=== PATIENT | male | born 1950 | race Caucasian/White ===

== ENCOUNTER 2016-07-25 12:28 | Inpatient (IN) | payer OTHER ==
[~2016-07-25] VITALS: Ht 167.6 cm; Wt 108.5 kg
[~2016-07-25 12:28] MED LIST: /METO25TAB PO; ALEV220C2; CELE-19 PO; COUM1TAB17 PO; HYDR7.5T30 PO; LYRI75CA PO; MELO7.5S PO; METO50TA2 PO; PERCOCET PO; TRAMADOL PO; TYLE167L PO
[2016-07-25 15:03] LABS: INR 1.4
[2016-07-25 15:18] LABS: BASO % 0.2 % (0.0-1.0); EOS % 0.2 % (0.0-3.0); LYMPH # 0.4 K/mm3 (1.5-4.5); LYMPH % 10.1 % (24.0-44.0); MEAN CORPUSCULAR HEMOGLOBIN 29.6 pg (27.0-33.0); MEAN CORPUSCULAR HGB CONC 32.8 g/dl (32.0-36.5); MEAN CORPUSCULAR VOLUME 90.1 fl (80.0-96.0); MONO # 0.2 K/mm3 (0.0-0.8); MONO % 4.4 % (0.0-5.0); NEUTROPHILS # 3.7 K/mm3 (1.8-7.7); NEUTROPHILS % 84.1 % (36.0-66.0); RED CELL DISTRIBUTION WIDTH 13.6 % (11.5-14.5); WHITE BLOOD COUNT 4.4 K/mm3 (4.0-10.0)
[2016-07-25 15:20] LABS: ANION GAP 14 MEQ/L (8-16); BLOOD UREA NITROGEN 15 MG/DL (7-18); CALCIUM LEVEL 8.4 MG/DL (8.8-10.2); CARBON DIOXIDE LEVEL 27 MEQ/L (21-32); CHLORIDE LEVEL 98 MEQ/L (98-107); CREATININE FOR GFR 0.64 MG/DL (0.70-1.30); GLOMERULAR FILTRATION RATE > 60.0 (>49); GLUCOSE, FASTING 169 MG/DL (80-110); POTASSIUM SERUM 3.5 MEQ/L (3.5-5.1); SODIUM LEVEL 139 MEQ/L (136-145)
[2016-07-25 15:32] LABS: PLATELET COUNT, AUTOMATED 59 k/mm3 (150-450)
[2016-07-25] MEDS ORDERED: OXAZEPAM 15 MG CAP As Ordered ONE (16:23)
[2016-07-25] MEDS ORDERED: METO50TA2 PO (17:05)
--- NOTE | 2016-07-25 18:25 | EDDOCDS ---
Physician Documentation [facility] Name: Onel Juarez Age: 65 yrs Sex: Male : 1950 Arrival Date: 07/25/2016 Time: 12:28 Bed 20 Private MD: Disposition: 07/25/16 17:07 Hospitalization ordered by Treva Aaron for Inpatient Admission. Preliminary diagnosis are Epistaxis, Alcohol dependence with withdrawal, Thrombocytopenia, unspecified. - Bed requested for 5 [place]. - Status is Inpatient Admission. mb9 - Condition is Stable. - Problem is new. - Symptoms are unchanged. Historical: - Allergies: No known drug Allergies; - Home Meds: 1. metoprolol tartrate 50 mg Oral tab 1 tab 2 times per day 2. Celebrex 200 mg Oral cap 1 cap 2 times per day - PMHx: Hypertension; - PSHx: right hip replacement.; - Social history: Smoking status: Chewing Tobacco Patient uses alcohol on a daily basis. "about 12 bottles of beer".. No barriers to communication noted, The patient speaks fluent Paraguayan. - Family history: No immediate family members are acutely ill. - : The pt / caregiver states he / she is not on anticoagulants. Home medication list is obtained from. - Exposure Risk Screening:: None identified. Vital Signs: 07/25 12:46 BP 141 / 67; Pulse 108; Resp 20; Pulse Ox 96% on R/A; Weight 112.04 kg / 247.01 lbs dpm (R); Height 5 ft. 6 in. (167.64 cm) (R); Pain 0/10; 12:54 BP 151 / 71 (auto/); mb9 12:55 Pulse 104 MON; Pulse Ox 96% ; mb9 13:25 Pulse 96 MON; Pulse Ox 87% ; mb9 13:25 BP 123 / 81 (auto/); mb9 13:39 Pulse 102 MON; Pulse Ox 96% ; mb9 13:39 BP 123 / 77 (auto/); mb9 13:41 Temp 97.9(O); nb2 17:20 BP 149 / 66; Pulse 122; Resp 17; Temp 97.8(O); Pulse Ox 95% on R/A; mb9 12:46 Body Mass Index 39.87 (112.04 kg, 167.64 cm) dpm Procedures: 18:02 Epistaxis Treatment: Moderate amount of bleeding noted from left nare. Treated using br1 direct pressure, nasal clamp, Bautista-Synephrine drops, anterior packing, with a Rapid Rhino 5.5cm. MDM: 13:39 Oral Temp ordered. br1 14:11 IV Saline Lock ordered. br1 14:11 NS 0.9% 1000 ml IV at 150 mL/hr continuous ordered. br1 14:12 CBC with Diff Ordered. EDMS 14:12 BMP Ordered. EDMS 14:12 PT/INR Ordered. EDMS 14:12 PTT Ordered. EDMS 14:32 [facility] Payment Agreement was scanned into [employer] and attached to record. jls1 14:32 Financial registration complete. jls1 15:49 CBC with Diff Reviewed. br1 15:49 BMP Reviewed. br1 15:49 PT/INR Reviewed. br1 15:49 PTT Reviewed. br1 15:50 Ambulate Patient to Assess Patient Safety ordered. br1 16:20 Oxazepam 30 mg PO once ordered. br1 16:28 BED REQUEST+ADM ordered. EDMS 17:08 Admission / Observation Status ordered. EDMS 17:08 2 GRAM SODIUM DIET ordered. EDMS 17:09 HEMOGLOBIN & HEMATOCRIT Ordered. EDMS 18:03 ED course: Called to bedside, return of left sided epistaxis. 5.5 cm rapid rhino br1 anterior packing placement with good effect. Will continue to monitor.. Administered Medications: 14:43 Drug: NS 0.9% 1000 ml [sodium chloride 0.9 % intravenous solution] Route: IV; Rate: 150 mb9 mL/hr; Site: left antecubital; 18:24 Follow up: IV Intake: 300ml mb9 16:28 Drug: Oxazepam 30 mg [oxazepam 15 mg capsule (2 caps)] Route: PO; ld5 Signatures: Dispatcher [employer] EDMS Thanh Echevarria MD MD br1 Kasia Contreras RN RN sls2 Lalit Alvarenga RN RN mb9 Sheri Stallings jls1 Clarissa Gee RN ld5 The chart was reviewed and I authenticate all verbal orders and agree with the evaluation and treatment provided.Attachments: 14:32 [facility] Payment Agreement jl MTDD
--- NOTE | 2016-07-25 18:25 | EDDOCDS ---
Nurse's Notes [facility] Name: Onel Juarez Age: 65 yrs Sex: Male : 1950 Arrival Date: 07/25/2016 Time: 12:28 Bed 20 Private MD: Diagnosis: Epistaxis;Alcohol dependence with withdrawal;Thrombocytopenia, unspecified Presentation: 07/25 12:37 Presenting complaint: EMS states: "Nose bleed since 3 am on and off. He has a history mb9 of hypertension. Pt has been drinking all day.". Suicide/Homicide risk assessment- the patient denies having any suicidal and/or homicidal ideations and does not present with any other emotional, behavioral or mental health complaints. Status: Patient is not a manager client service or dependent. Transition of care: patient was not received from another setting of care. 12:37 Acuity: LATONYA Level 3 mb9 12:37 Method Of Arrival: Ambulance mb9 12:55 Adult Sepsis Screening: The patient does not have new or worsening altered mentation. mb9 Patient's respiratory rate is less than 22. Systolic blood pressure is greater than 100. Patient has a qSOFA score of 0- Negative Sepsis Screen. Triage Assessment: 12:56 General: Appears unkempt, Behavior is cooperative, Smells of alcohol. Pain: Denies mb9 pain. Pt Declines HIV testing. The patient is triaged at the bedside. See Assessment in Nurses Notes section of ED record. Neurological: Level of Consciousness is awake, alert, Oriented to person, place, Speech is slurred, Facial symmetry appears normal, Pupils are PERRLA. EENT: Nares with bleeding noted pt reports nose bleed since 3 am and drinking all day. pt cleaned of a large of dried blood. . Respiratory: Airway is patent Respiratory effort is even, unlabored. Historical: - Allergies: No known drug Allergies; - Home Meds: 1. metoprolol tartrate 50 mg Oral tab 1 tab 2 times per day 2. Celebrex 200 mg Oral cap 1 cap 2 times per day - PMHx: Hypertension; - PSHx: right hip replacement.; - Social history: Smoking status: Chewing Tobacco Patient uses alcohol on a daily basis. "about 12 bottles of beer".. No barriers to communication noted, The patient speaks fluent Serbian. - Family history: No immediate family members are acutely ill. - : The pt / caregiver states he / she is not on anticoagulants. Home medication list is obtained from. - Exposure Risk Screening:: None identified. Screenin:20 Screening information is obtained from the patient. Fall risk: No risks identified. mb9 Assistance ADL's: requires no assistance with activities of daily living. Abuse/DV Screen: The patient / caregiver reports he/she is: not in a situation that causes fear, pain or injury. Nutritional screening: No deficits noted. Advance Directives: There is no active DNR order. home support is adequate. Assessment: 13:52 General: Appears in no apparent distress, Behavior is appropriate for age, cooperative. mb9 Respiratory: Airway is patent Respiratory effort is even, unlabored. 16:13 Reassessment: Patient states symptoms have improved. Adult Sepsis Screening: The mb9 patient does not have new or worsening altered mentation. Patient's respiratory rate is less than 22. Systolic blood pressure is greater than 100. Patient has a qSOFA score of 0- Negative Sepsis Screen. General: Appears in no apparent distress, Behavior is appropriate for age, cooperative. General: pt able to ambulate 20 ft with his cane. pt appeared unsteady but states, "I feel like I'm walking pretty normal". . EENT: Nares pt appears to have a small amount of bleeding from his left nare.. 17:20 Reassessment: Patient states symptoms have improved. General: Appears in no apparent mb9 distress, Behavior is appropriate for age, cooperative. Respiratory: Airway is patent Respiratory effort is even, unlabored. Vital Signs: 12:46 BP 141 / 67; Pulse 108; Resp 20; Pulse Ox 96% on R/A; Weight 112.04 kg (R); Height 5 dpm ft. 6 in. (167.64 cm) (R); Pain 0/10; 12:54 BP 151 / 71 (auto/); mb9 12:55 Pulse 104 MON; Pulse Ox 96% ; mb9 13:25 Pulse 96 MON; Pulse Ox 87% ; mb9 13:25 BP 123 / 81 (auto/); mb9 13:39 Pulse 102 MON; Pulse Ox 96% ; mb9 13:39 BP 123 / 77 (auto/); mb9 13:41 Temp 97.9(O); nb2 17:20 BP 149 / 66; Pulse 122; Resp 17; Temp 97.8(O); Pulse Ox 95% on R/A; mb9 12:46 Body Mass Index 39.87 (112.04 kg, 167.64 cm) dpm Vitals: 12:56 Log In Time N/A - ambulance arrival. mb9 ED Course: 12:29 Patient visited by Nikky Osorio PCA. ar3 12:29 Patient moved to Waiting ar3 12:29 Patient moved to 20 ar3 12:40 Triage Initiated mb9 13:03 Patient visited by Lalit Alvarenga RN. mb9 13:03 Maintain field IV. Dressing intact. Good blood return noted. Site clean & dry. Gauge & mb9 site: 20 gauge left ac. 13:42 Patient visited by Angelic Orozco. nb2 14:03 Thanh Echevarria MD is Attending Physician. br1 14:10 Patient visited by Thanh Echevarria MD. br1 14:32 [facility] Payment Agreement was scanned into [employer] and attached to record. jls1 14:39 Patient name changed from Onel\\S\\\\S\\Hellinger\\S\\ to Onel\\S\\ \\S\\Hellinger. EDMS 14:43 PTT Sent. mb9 14:43 PT/INR Sent. mb9 14:43 BMP Sent. mb9 14:43 CBC with Diff Sent. mb9 16:12 Patient visited by Lalit Alvarenga RN. mb9 16:58 Patient visited by Thanh Echevarria MD. br1 17:07 Treva Aaron is Hospitalizing Provider. br1 17:20 The patient / caregiver is instructed regarding the plan of care and ED course. mb9 17:20 No procedures done that require assistance. mb9 Administered Medications: 14:43 Drug: NS 0.9% 1000 ml [sodium chloride 0.9 % intravenous solution] Route: IV; Rate: 150 mb9 mL/hr; Site: left antecubital; 18:24 Follow up: IV Intake: 300ml mb9 16:28 Drug: Oxazepam 30 mg [oxazepam 15 mg capsule (2 caps)] Route: PO; ld5 Intake: 17:45 PO: 360.00ml; Total: 360.00ml. mb9 18:24 IV: 300.00ml; Total: 660.00ml. mb9 Output: 17:45 Urine: 300.00ml; Total: 300.00ml. mb9 Order Results: Lab Order: CBC with Diff; SPEC'M 07/25/16 14:35 Test: WHITE BLOOD COUNT; Value: 4.4; Range: 4.0-10.0; Units: K/mm3; Status: F Test: RED BLOOD COUNT; Value: 4.37; Range: 4.30-6.10; Units: M/mm3; Status: F Test: HEMOGLOBIN; Value: 12.9; Range: 14.0-18.0; Abnormal: Below low normal; Units: g/dl; Status: F Test: HEMATOCRIT; Value: 39.4; Range: 42.0-52.0; Abnormal: Below low normal; Units: %; Status: F Test: MEAN CORPUSCULAR VOLUME; Value: 90.1; Range: 80.0-96.0; Units: fl; Status: F Test: MEAN CORPUSCULAR HEMOGLOBIN; Value: 29.6; Range: 27.0-33.0; Units: pg; Status: F Test: MEAN CORPUSCULAR HGB CONC; Value: 32.8; Range: 32.0-36.5; Units: g/dl; Status: F Test: RED CELL DISTRIBUTION WIDTH; Value: 13.6; Range: 11.5-14.5; Units: %; Status: F Test: PLATELET COUNT, AUTOMATED; Value: 59; Range: 150-450; Abnormal: Below low normal; Units: k/mm3; Status: F Test: NEUTROPHILS %; Value: 84.1; Range: 36.0-66.0; Abnormal: Above high normal; Units: %; Status: F Test: LYMPH %; Value: 10.1; Range: 24.0-44.0; Abnormal: Below low normal; Units: %; Status: F Test: MONO %; Value: 4.4; Range: 0.0-5.0; Units: %; Status: F Test: EOS %; Value: 0.2; Range: 0.0-3.0; Units: %; Status: F Test: BASO %; Value: 0.2; Range: 0.0-1.0; Units: %; Status: F Test: LARGE UNSTAINED CELL %; Value: 1.0; Range: 0.0-4.0; Units: %; Status: F Test: NEUTROPHILS #; Value: 3.7; Range: 1.8-7.7; Units: K/mm3; Status: F Test: LYMPH #; Value: 0.4; Range: 1.5-4.5; Abnormal: Below low normal; Units: K/mm3; Status: F Test: MONO #; Value: 0.2; Range: 0.0-0.8; Units: K/mm3; Status: F Test: EOS #; Value: 0.0; Range: 0.0-0.50; Units: K/mm3; Status: F Test: BASO #; Value: 0.0; Range: 0.0-0.2; Units: K/mm3; Status: F Test: LARGE UNSTAINED CELL #; Value: 0.0; Range: 0.0-0.4; Units: K/mm3; Status: F Lab Order: [facility]; SPEC'M 07/25/16 14:35 Test: GLUCOSE, FASTING; Value: 169; Range: 80-110; Abnormal: Above high normal; Units: MG/DL; Status: F Test: BLOOD UREA NITROGEN; Value: 15; Range: 7-18; Units: MG/DL; Status: F Test: CREATININE FOR GFR; Value: 0.64; Range: 0.70-1.30; Abnormal: Below low normal; Units: MG/DL; Status: F Test: GLOMERULAR FILTRATION RATE; Value: > 60.0; Range: >49; Status: F Test: SODIUM LEVEL; Value: 139; Range: 136-145; Units: MEQ/L; Status: F Test: POTASSIUM SERUM; Value: 3.5; Range: 3.5-5.1; Units: MEQ/L; Status: F Test: CHLORIDE LEVEL; Value: 98; Range: 98-107; Units: MEQ/L; Status: F Test: CARBON DIOXIDE LEVEL; Value: 27; Range: 21-32; Units: MEQ/L; Status: F Test: ANION GAP; Value: 14; Range: 8-16; Units: MEQ/L; Status: F Test: CALCIUM LEVEL; Value: 8.4; Range: 8.8-10.2; Abnormal: Below low normal; Units: MG/DL; Status: F Test Note: ; Units are mL/min/1.73 m2 Chronic Kidney Disease Staging per NKF: Stage I & II GFR >=60 Normal to Mildly Decreased Stage III GFR 30-59 Moderately Decreased Stage IV GFR 15-29 Severely Decreased Stage V GFR <15 Very Little GFR Left ESRD GFR <15 on IS PROJECT MANAGER Lab Order: PT/INR; SPEC'M 07/25/16 14:35 Test: PROTHROMBIN TIME; Value: 17.3; Range: 12.3-14.5; Abnormal: Above high normal; Units: SECONDS; Status: F Test: INR; Value: 1.40; Status: F Test Note: ; THERAPUTIC HUMAN INR VALUES INDICATIONS NORMAL RANGES PROPHYLAXIS/TREATMENT OF: VENOUS THROMBOSIS 2.0-3.0 PULMONARY EMBOLISM 2.0-3.0 PREVENTION OF SYSTEMIC EMBOLISM FROM: TISSUE HEART VALVES 2.0-3.0 ACUTE MYOCARDIAL INFARCTION 2.0-3.0 VALVULAR HEART DISEASE 2.0-3.0 ATRIAL FIBRILLATION 2.0-3.0 MECHANICAL VALVES(HIGH RISK) 2.5-3.5 RECURRENT MYOCARDIAL INFARCTION 2.5-3.5 Lab Order: PTT; SPEC'M 07/25/16 14:35 Test: PARTIAL THROMBOPLASTIN TIME; Value: 33.4; Range: 26.6-37.1; Units: SECONDS; Status: F Outcome: 17:07 Decision to Hospitalize by Provider. br1 17:20 Discharge Assessment: Patient awake, alert and oriented x 3. No cognitive and/or mb9 functional deficits noted. Patient verbalized understanding of disposition instructions. patient administered narcotics - yes. Patient was admitted to the hospital or transferred to another facility. The following High Risk Discharge criteria are identified: None. Admitted to Med/Surg. Condition: good Condition: stable Condition: improved. No special radiology studies were completed. Property :Personal belongings accompany Pt. 18:24 Patient left the ED. mb9 Signatures: Dispatcher [employer] EDMS Thanh Echevarria MD MD br1 Nikky Osorio, VEIN ACCESS TECHNICIAN VEIN ACCESS TECHNICIAN ar3 Clarissa Gee,RN RN ld5 Arjun Perez dpm, MichaelRN RN mb9 Sheri Stallings jls1 Angelic Orozco nb2 MTDD
[2016-07-25 18:38] VITALS: BP 164/81
[2016-07-25] MEDS: FOLIC ACID 1 MG TAB PO SCH (18:47)
[2016-07-25] MEDS: THIAMINE 100 MG TAB PO SCH (18:47)
[2016-07-25] MEDS: MULTIVITAMINS/MINERALS THERAP 1 TAB PO SCH (18:47)
[2016-07-25 20:00] VITALS: BP_SYST 166; BP_SYST 173; BP_DIAS 68; BP_DIAS 77
[2016-07-25 20:33] VITALS: BP 166/70
[2016-07-25] MEDS ORDERED: LIDOCAINE W/EPINEPHRINE 1% 20ML VIAL As Ordered ONE (20:40)
[2016-07-25] MEDS ORDERED: LIDOCAINE As Ordered ONE (20:40)
[2016-07-25] MEDS ORDERED: EPINEPHRINE As Ordered ONE (20:40)
[2016-07-25] MEDS ORDERED: LIDOCAINE 2% W/EPIN INJ 20ML **PRES FREE As Ordered ONE (20:41)
[2016-07-25] MEDS ORDERED: LIDOCAINE W/EPINEPHRINE 1% 20ML VIAL SC SCH (21:30)
[2016-07-25 22:00] VITALS: BP 160/68
[2016-07-25] MEDS ORDERED: LORazepam 2 MG/ML VIAL (J2060) IV PRN (22:15)
[2016-07-25] MEDS ORDERED: OXAZEPAM 10 MG CAP PO ONE (22:15)
[2016-07-25 22:33] VITALS: BP 138/84
[2016-07-26] VITALS (23 sets, daily range): BP systolic 111–191; BP diastolic 56–108; O2SAT 93–97
--- NOTE | 2016-07-26 | REPUSA ---
HISTORY: Shortness of breath COMPARISON: None provided. CHEST, FRONTAL: Heart: No cardiomegaly. Lungs: No lobar infiltrate, pulmonary edema, pneumothorax or significant effusion. Skeleton: Intact. IMPRESSION: No acute thoracic process.
[2016-07-26] MEDS ORDERED: LORazepam 2 MG TAB PO PRN (01:30)
[2016-07-26] MEDS ORDERED: LORazepam 1 MG TAB PO PRN (01:30)
[2016-07-26] MEDS: METOPROLOL 5 MG/5 ML VIAL IV SCH ×3 (01:35→02:11)
[2016-07-26] MEDS ORDERED: OXAZEPAM 15 MG CAP PO PRN (01:45)
[2016-07-26] MEDS ORDERED: LORazepam 2 MG/ML VIAL (J2060) IV PRN (01:45)
[2016-07-26] MEDS: OXAZEPAM 15 MG CAP PO SCH ×2 (01:45→08:21)
[2016-07-26] MEDS: ONDANSETRON 4MG/2ML VIAL (J2405) IV PRN ×2 (01:51→08:21)
[2016-07-26] MEDS: NS 1,000 ML IV SCH ×4 (01:52→23:57)
--- NOTE | 2016-07-26 02:01 | HPE ---
DATE OF ADMISSION: 07/25/2016 PRIMARY CARE PROVIDER: None. HISTORY OF PRESENT ILLNESS: The patient is a 65-year-old male, presented to the emergency room with a nose bleed that started at 3 a.m. It has been on and off. The patient has history of hypertension and family history of nosebleeds. He has history of heavy alcohol abuse. Drinks 12 beers a day for the past 50 years. Does not see primary care provider. In the emergency room, the patient's bleeding had stopped. Dr. Thanh Echevarria spoke with Dr. Ybarra, ENT who recommended nothing more to be done at this time and to monitor the patient. Hospitalist was called for the admission. Upon my exam, the patient did not have any more nosebleed, but he did have one episode of vomiting with blood likely from the nosebleed. He denied any chest pain or shortness of breath. No other symptoms at this time. He was admitted under hospitalist service. REVIEW OF SYSTEMS: 12-point review of system was obtained all which was negative except for those mentioned above. PAST MEDICAL HISTORY: Significant for hypertension and alcohol abuse. PAST SURGICAL HISTORY: Right hip replacement. ALLERGIES: No known drug allergies. HOME MEDICATIONS: Include: - metoprolol 50 mg twice a day - Celebrex 20 mg twice a day SOCIAL HISTORY: The patient drinks 12 bottles of beer a day. Chewing tobacco. ALLERGIES: No known drug allergies. FAMILY HISTORY: Significant for nosebleeds and alcohol abuse. LABORATORY FINDINGS: WBC 4.4, platelets 59, hemoglobin 12.9, hematocrit 39.4. Sodium 139, potassium 3.5, chloride 98, BUN 15, creatinine 0.64, glucose 169. Coagulation panel: PT 17.3, INR 1.4, APTT 33.4. ASSESSMENT AND PLAN: 1. Epistaxis likely secondary to thrombocytopenia and liver disease. The patient currently does not have any more nosebleeds. We will continue to monitor hemoglobin and hematocrit and will monitor for any more nosebleeds. 2. History of thrombocytopenia, elevated INR likely secondary to liver disease. We will check liver enzymes in the morning. The patient stated he has no interest in quitting alcohol. He has been drinking for the past 50 years. He stated he only quit briefly when he was in prison. 3. History of alcohol abuse. We will start the patient on Serax three times a day, thiamine, folate, multivitamin. Will continue to monitor for signs of withdrawals. 4. Anemia. The patient has no more evidence of bleeding at this time. We will continue to monitor hemoglobin every 6 hours and transfuse as needed. 5. Deep venous thrombosis (DVT) prophylaxis. Sequential compression devices (SCDs) while in bed.
[2016-07-26] MEDS: METOPROLOL TART 25 MG TABLET PO SCH ×5 (03:04→23:58)
[2016-07-26 04:48] LABS: BASO % 0.3 % (0.0-1.0); EOS # 0.1 K/mm3 (0.0-0.50); EOS % 0.7 % (0.0-3.0); LARGE UNSTAINED CELL # 0.1 K/mm3 (0.0-0.4); LARGE UNSTAINED CELL % 1.5 % (0.0-4.0); LYMPH # 0.7 K/mm3 (1.5-4.5); LYMPH % 6.7 % (24.0-44.0); MEAN CORPUSCULAR HEMOGLOBIN 30.1 pg (27.0-33.0); MEAN CORPUSCULAR HGB CONC 32.5 g/dl (32.0-36.5); MEAN CORPUSCULAR VOLUME 92.7 fl (80.0-96.0); MONO # 0.8 K/mm3 (0.0-0.8); MONO % 8.6 % (0.0-5.0); NEUTROPHILS # 7.4 K/mm3 (1.8-7.7); NEUTROPHILS % 82.2 % (36.0-66.0); RED CELL DISTRIBUTION WIDTH 14.9 % (11.5-14.5)
[2016-07-26 04:53] LABS: INR 1.49
[2016-07-26 05:02] LABS: PLATELET COUNT, AUTOMATED 61 k/mm3 (150-450)
[2016-07-26 05:11] LABS: ALBUMIN 2.9 GM/DL (3.2-5.2); ALBUMIN/GLOBULIN RATIO 0.66 (1.00-1.93); ALKALINE PHOSPHATASE 54 U/L (45-117); ALT/SGPT 55 U/L (12-78); ANION GAP 10 MEQ/L (8-16); AST/SGOT 89 U/L (15-37); BILIRUBIN,TOTAL 2.2 MG/DL (0.2-1.0); BLOOD UREA NITROGEN 17 MG/DL (7-18); CALCIUM LEVEL 8.6 MG/DL (8.8-10.2); CARBON DIOXIDE LEVEL 29 MEQ/L (21-32); CHLORIDE LEVEL 103 MEQ/L (98-107); CREATININE FOR GFR 0.73 MG/DL (0.70-1.30); GLOMERULAR FILTRATION RATE > 60.0 (>49); GLUCOSE, FASTING 154 MG/DL (80-110); POTASSIUM SERUM 3.4 MEQ/L (3.5-5.1); SODIUM LEVEL 142 MEQ/L (136-145); TOTAL PROTEIN 7.3 GM/DL (6.4-8.2)
[2016-07-26] MEDS ORDERED: OXAZEPAM 10 MG CAP PO SCH (06:00)
[2016-07-26] MEDS: MULTIVITAMINS/MINERALS THERAP 1 TAB PO SCH (08:21)
[2016-07-26] MEDS: FOLIC ACID 1 MG TAB PO SCH (08:21)
[2016-07-26] MEDS: THIAMINE 100 MG TAB PO SCH (08:21)
[2016-07-26] MEDS ORDERED: LIDOCAINE 2% INJ 100 MG/5 ML SDV (FOR ANES.) As Ordered ONE (11:35)
[2016-07-26] MEDS ORDERED: PROPOFOL 200 MG/20 ML VIAL As Ordered ONE (11:35)
--- NOTE | 2016-07-26 12:01 | ROOR ---
Patient Name: Onel Juarez Procedure Date: 07/26/2016 11:07 AM Date of : 1950 Age: 65 Gender: Male Note Status: Finalized Procedure: Upper GI endoscopy Indications: Hematemesis, Admitted with severe nosebleed requiring admission, ENT intervention overnight, This is to r/o GI bleeding. Pt with chronic liver disease related to alcoholism. Providers: Parminder ANDRES MD Referring MD: 2. Inpatient 2. Inpatient Requesting Provider: Medicines: Monitored Anesthesia Care Complications: No immediate complications. Procedure: Pre-Anesthesia Assessment: - The heart rate, respiratory rate, oxygen saturations, blood pressure, adequacy of pulmonary ventilation, and response to care were monitored throughout the procedure. The Endoscope was introduced through the mouth, and advanced to the second part of duodenum. The upper GI endoscopy was accomplished without difficulty. The patient tolerated the procedure well. The Endoscope was introduced through the mouth, and advanced to the second part of duodenum. Findings: The esophagus was normal. The stomach was normal. The examined duodenum was normal. Impression: - Normal esophagus. - Normal stomach. - Normal examined duodenum. - Fresh blood clot suctioned from posterior pharynx. Gastric fluid is clear/yellowish. No varices, ulcers, irritation or inflammation.-this is a normal exam. - No specimens collected. Recommendation: - Resume regular diet. Parminder Andres MD Parminder ANDRES MD 07/26/2016 12:01:18 PM This report has been signed electronically. Number of Addenda: 0 Note Initiated On: 07/26/2016 11:07 AM Estimated Blood Loss: Estimated blood loss: none.
[2016-07-26] MEDS ORDERED: NS 1,000 ML IV SCH (13:00)
[2016-07-26] MEDS ORDERED: ONDANSETRON 4MG/2ML VIAL (J2405) IV PRN (13:00)
[2016-07-26] MEDS: OXAZEPAM 10 MG CAP PO SCH (17:59)
--- NOTE | 2016-07-26 21:06 | IPN ---
DATE: 07/26/2016 SUBJECTIVE: Patient seen and examined in the room today. The patient showed some sign of alcohol withdrawal this morning. The patient is on Serax. Due to a history of hemoptysis, gastroenterology (GI) specialist, Dr. Dove, is consulted. The patient was brought down to the operating room (OR) for upper endoscopy. Eight (please verify) Propofol was given. However, per anesthesiologist, the patient had a difficult time waking up from the sedation. The patient stayed in the postanesthesia care unit (PACU) almost 40 minutes to 60 minutes after procedure. Later the patient woke up without any complaints. Serax dose was decreased. I had a chance to talk to the patient's sister. The patient's alcohol oral intake may be more than what the patient stated. Per patient, the patient has been drinking 12 beers daily for seven days a week for the past 50 years. She understands the patient has a significant alcohol abuse issue; however, nothing has been able to help the patient and the patient continues to drink. OBJECTIVE: VITAL SIGNS: Temperature is 98, pulse is 82, respirations 20, blood pressure 121/77, pulse oximetry 90% on room air. GENERAL: The patient is fatigued. However, the patient is awake and alert and oriented. HEENT: Normocephalic, atraumatic. Extraocular motor grossly intact. CARDIOVASCULAR: Positive S1, S2. Regular rate. LUNGS: Clear to auscultation bilaterally. ABDOMEN: Obese, soft, nontender. EXTREMITIES: No significant edema. No cyanosis. LABORATORY DATA: WBC is 9, hemoglobin 11.7, hematocrit is 35.9, platelet count 61. Sodium is 142, potassium 3.4, chloride 103, carbon dioxide 29, BUN 17, creatinine 0.73, GFR greater than 60, fasting glucose 154, calcium 8.6, total bilirubin 2.2, AST 89, ALT 55, alkaline phosphatase is 54. Troponin I is 0.1. Total protein is 7.9, albumin 2.9. ASSESSMENT AND PLAN: 1. Epistaxis secondary to thrombocytopenia and liver disease. Dr. Ybarra has been consulted on the case. Initially the patient was evaluated by Dr. Ybarra and packing was done. However, there was a recurrence of severe epistaxis so Dr. Ybarra went back to visit the patient and cautery was done. Now hemoglobin and hematocrit are continued monitored. No significant drop. 2. Hemoptysis. The onset of hemoptysis occurred shortly after epistaxis. However, the amount is more than what is suspected, and the patient has a significant history of liver disease, and unable to rule out possible gastrointestinal (GI) bleed. The patient has an EGD by Dr. Dove. Per preliminary report, there is no source of acute bleeding. 3. History of thrombocytopenia with elevated international normalized ratio (INR) secondary to liver disease. Continue to monitor the patient for any acute bleeding. Continue trending hemoglobin and hematocrit. 4. History of alcohol abuse. The patient is on Serax and thiamine, folate, and multivitamin. Due to concern of prolonged sedation, the patient's Serax dosage is decreased. The patient was on clinical institute withdrawal assessment (CIWA) protocol. The patient also has intravenous (IV) Ativan as needed. 5. History of anemia. Bleeding has been stopped at this moment. Continue to monitor hemoglobin and hematocrit. 6. Deep venous thrombosis (DVT) prophylaxis. The patient is on thromboembolism deterrent stockings (TEDs) and sequential compression devices.
[2016-07-27] VITALS (14 sets, daily range): BP systolic 116–162; BP diastolic 55–77; O2SAT 90–97
[2016-07-27] MEDS: METOPROLOL TART 25 MG TABLET PO SCH ×4 (05:47→23:29)
[2016-07-27] MEDS: THIAMINE 100 MG TAB PO SCH (08:43)
[2016-07-27] MEDS: MULTIVITAMINS/MINERALS THERAP 1 TAB PO SCH (08:43)
[2016-07-27] MEDS: OXAZEPAM 10 MG CAP PO SCH ×3 (08:44→16:11)
[2016-07-27] MEDS: FOLIC ACID 1 MG TAB PO SCH (08:44)
[2016-07-27] MEDS: NS 1,000 ML IV SCH ×3 (08:44→23:31)
[2016-07-27] MEDS: ONDANSETRON 4MG/2ML VIAL (J2405) IV PRN (16:11)
--- NOTE | 2016-07-27 16:38 | IPN ---
DATE: 07/27/2016 SUBJECTIVE: Patient is seen and examined in the room today. Patient still complains of lightheadedness with function instabilities. He has not noticed any recurrence of the bleeding. When asking about the patient's drinking habit, he stated "I refuse to quit, I have been drinking for so long, there is no significant problem with my drinking." The conversation was being witnessed by the nursing staff who was also in the room. OBJECTIVE: VITAL SIGNS: Temperature is 99.4, pulse is 79, respirations 20, blood pressure 150/72, pulse oximetry is 96% on room air. GENERAL: Fatigued, no sign of acute distress, alert and oriented times three. HEENT: Normocephalic, atraumatic. No active bleeding noted in the nostrils. Extraocular motor grossly intact. CARDIOVASCULAR: Positive S1, S2, regular rate. LUNGS: Clear to auscultation bilaterally. ABDOMEN: Obese, soft, nontender, nondistended. Bowel sounds present. EXTREMITIES: No edema. No cyanosis. LABORATORY DATA: WBC is 9, hemoglobin is 11.7, hematocrit is 35.9, platelet count is 61. Sodium is 142, potassium 3.4, chloride is 103, carbon dioxide 29, BUN 17, creatinine 0.73, GFR greater than 60, fasting glucose 154, calcium 8.6, total bilirubin 2.2, AST is 89, ALT is 55, alkaline phosphatase is 54. Total protein is 7.3, albumin 2.9. Troponin I is 0.06. ASSESSMENT AND PLAN: 1. Acute on chronic anemia, secondary to severe epistaxis. On admission, patient had a hemoglobin of 12.9. Currently, hemoglobin dropped down to 9.4. Patient had cautery done by Dr. Ybarra yesterday. Esophagogastroduodenoscopy (EGD) was done and showed no upper gastrointestinal (GI) bleed. Continue to watch his hemoglobin and hematocrit. Patient is receiving IV fluid. We will follow orthostatics. If the patient's hemoglobin and hematocrit continue to drop, we may consider a blood transfusion. 2. Severe alcohol abuse. After he received 8 mL of fentanyl during the upper endoscopy, he had difficulty of arousal for at least 45 minutes to an hour in the postanesthesia care unit (PACU). Serax dosage has been decreased. Due to the patient's severe drinking, the patient is on clinical institute withdrawal assessment (CIWA) protocol and the patient has Ativan IV as needed. Patient is on thiamine, folic acid, and multivitamin. 3. Hemoptysis, secondary to epistaxis. EGD is negative, done by Dr. Dove on 07/26/2016. No recurrence of hemoptysis. Continue to follow. . 4. 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 Patient refused to quit drinking alcohol. 5. Deep venous thrombosis (DVT) prophylaxis. The patient has acute bleeding. No anticoagulation is safe at this time. The patient will be on thromboembolism-deterrent stockings (TEDS) and sequential compression device. 6. History of hypertension. Currently, blood pressure is in the satisfactory range. Patient is taking metoprolol tartrate 37.5 mg by mouth every six hours.
--- NOTE | 2016-07-27 19:26 | EDDOCDS ---
Physician Documentation [facility] Name: Onel Juarez Age: 65 yrs Sex: Male : 1950 Arrival Date: 07/25/2016 Time: 12:28 Bed 20 Private MD: Disposition: 07/25/16 17:07 Hospitalization ordered by Treva Aaron for Inpatient Admission. Preliminary diagnosis are Epistaxis, Alcohol dependence with withdrawal, Thrombocytopenia, unspecified. - Bed requested for 5 Weinberg. - Status is Inpatient Admission. mb9 - Condition is Stable. - Problem is new. - Symptoms are unchanged. Historical: - Allergies: No known drug Allergies; - Home Meds: 1. metoprolol tartrate 50 mg Oral tab 1 tab 2 times per day 2. Celebrex 200 mg Oral cap 1 cap 2 times per day - PMHx: Hypertension; - PSHx: right hip replacement.; - Social history: Smoking status: Chewing Tobacco Patient uses alcohol on a daily basis. "about 12 bottles of beer".. No barriers to communication noted, The patient speaks fluent Cymraes. - Family history: No immediate family members are acutely ill. - : The pt / caregiver states he / she is not on anticoagulants. Home medication list is obtained from. - Exposure Risk Screening:: None identified. Vital Signs: 07/25 12:46 BP 141 / 67; Pulse 108; Resp 20; Pulse Ox 96% on R/A; Weight 112.04 kg / 247.01 lbs dpm (R); Height 5 ft. 6 in. (167.64 cm) (R); Pain 0/10; 12:54 BP 151 / 71 (auto/); mb9 12:55 Pulse 104 MON; Pulse Ox 96% ; mb9 13:25 Pulse 96 MON; Pulse Ox 87% ; mb9 13:25 BP 123 / 81 (auto/); mb9 13:39 Pulse 102 MON; Pulse Ox 96% ; mb9 13:39 BP 123 / 77 (auto/); mb9 13:41 Temp 97.9(O); nb2 17:20 BP 149 / 66; Pulse 122; Resp 17; Temp 97.8(O); Pulse Ox 95% on R/A; mb9 12:46 Body Mass Index 39.87 (112.04 kg, 167.64 cm) dpm Procedures: 18:02 Epistaxis Treatment: Moderate amount of bleeding noted from left nare. Treated using br1 direct pressure, nasal clamp, Bautista-Synephrine drops, anterior packing, with a Rapid Rhino 5.5cm. MDM: 13:39 Oral Temp ordered. br1 14:11 IV Saline Lock ordered. br1 14:11 NS 0.9% 1000 ml IV at 150 mL/hr continuous ordered. br1 14:12 CBC with Diff Ordered. EDMS 14:12 BMP Ordered. EDMS 14:12 PT/INR Ordered. EDMS 14:12 PTT Ordered. EDMS 14:32 [facility] Payment Agreement was scanned into [employer] and attached to record. jls1 14:32 Financial registration complete. jls1 15:49 CBC with Diff Reviewed. br1 15:49 BMP Reviewed. br1 15:49 PT/INR Reviewed. br1 15:49 PTT Reviewed. br1 15:50 Ambulate Patient to Assess Patient Safety ordered. br1 16:20 Oxazepam 30 mg PO once ordered. br1 16:28 BED REQUEST+ADM ordered. EDMS 17:08 Admission / Observation Status ordered. EDMS 17:08 2 GRAM SODIUM DIET ordered. EDMS 17:09 HEMOGLOBIN & HEMATOCRIT Ordered. EDMS 18:03 ED course: Called to bedside, return of left sided epistaxis. 5.5 cm rapid rhino br1 anterior packing placement with good effect. Will continue to monitor.. 07/26 15:02 T-Sheet-- Draft Copy was scanned into [employer] and attached to record. kf3 Administered Medications: 07/25 14:43 Drug: NS 0.9% 1000 ml [sodium chloride 0.9 % intravenous solution] Route: IV; Rate: 150 mb9 mL/hr; Site: left antecubital; 18:24 Follow up: IV Intake: 300ml mb9 16:28 Drug: Oxazepam 30 mg [oxazepam 15 mg capsule (2 caps)] Route: PO; ld5 Signatures: Dispatcher [employer] EDMS Sumit Valdez, Reg Reg kf3 Thanh Echevarria MD MD br1 Kasia Contreras RN RN sls2 Lalit Alvarenga RN RN mb9 Sheri Stallings jls1 Clarissa Gee RN ld5 The chart was reviewed and I authenticate all verbal orders and agree with the evaluation and treatment provided.Attachments: 14:32 [facility] Payment Agreement jls1 07/26 15:02 T-Sheet-- Draft Copy kf3 Chart Complete MTDD
--- NOTE | 2016-07-27 19:26 | EDDOCDS ---
Physician Documentation [facility] Name: Onel Juarez Age: 65 yrs Sex: Male : 1950 Arrival Date: 07/25/2016 Time: 12:28 Bed 20 Private MD: Disposition: 07/25/16 17:07 Hospitalization ordered by Treva Aaron for Inpatient Admission. Preliminary diagnosis are Epistaxis, Alcohol dependence with withdrawal, Thrombocytopenia, unspecified. - Bed requested for 5 Weinberg. - Status is Inpatient Admission. mb9 - Condition is Stable. - Problem is new. - Symptoms are unchanged. Historical: - Allergies: No known drug Allergies; - Home Meds: 1. metoprolol tartrate 50 mg Oral tab 1 tab 2 times per day 2. Celebrex 200 mg Oral cap 1 cap 2 times per day - PMHx: Hypertension; - PSHx: right hip replacement.; - Social history: Smoking status: Chewing Tobacco Patient uses alcohol on a daily basis. "about 12 bottles of beer".. No barriers to communication noted, The patient speaks fluent Malawian. - Family history: No immediate family members are acutely ill. - : The pt / caregiver states he / she is not on anticoagulants. Home medication list is obtained from. - Exposure Risk Screening:: None identified. Vital Signs: 07/25 12:46 BP 141 / 67; Pulse 108; Resp 20; Pulse Ox 96% on R/A; Weight 112.04 kg / 247.01 lbs dpm (R); Height 5 ft. 6 in. (167.64 cm) (R); Pain 0/10; 12:54 BP 151 / 71 (auto/); mb9 12:55 Pulse 104 MON; Pulse Ox 96% ; mb9 13:25 Pulse 96 MON; Pulse Ox 87% ; mb9 13:25 BP 123 / 81 (auto/); mb9 13:39 Pulse 102 MON; Pulse Ox 96% ; mb9 13:39 BP 123 / 77 (auto/); mb9 13:41 Temp 97.9(O); nb2 17:20 BP 149 / 66; Pulse 122; Resp 17; Temp 97.8(O); Pulse Ox 95% on R/A; mb9 12:46 Body Mass Index 39.87 (112.04 kg, 167.64 cm) dpm Procedures: 18:02 Epistaxis Treatment: Moderate amount of bleeding noted from left nare. Treated using br1 direct pressure, nasal clamp, Bautista-Synephrine drops, anterior packing, with a Rapid Rhino 5.5cm. MDM: 13:39 Oral Temp ordered. br1 14:11 IV Saline Lock ordered. br1 14:11 NS 0.9% 1000 ml IV at 150 mL/hr continuous ordered. br1 14:12 CBC with Diff Ordered. EDMS 14:12 BMP Ordered. EDMS 14:12 PT/INR Ordered. EDMS 14:12 PTT Ordered. EDMS 14:32 [facility] Payment Agreement was scanned into [employer] and attached to record. jls1 14:32 Financial registration complete. jls1 15:49 CBC with Diff Reviewed. br1 15:49 BMP Reviewed. br1 15:49 PT/INR Reviewed. br1 15:49 PTT Reviewed. br1 15:50 Ambulate Patient to Assess Patient Safety ordered. br1 16:20 Oxazepam 30 mg PO once ordered. br1 16:28 BED REQUEST+ADM ordered. EDMS 17:08 Admission / Observation Status ordered. EDMS 17:08 2 GRAM SODIUM DIET ordered. EDMS 17:09 HEMOGLOBIN & HEMATOCRIT Ordered. EDMS 18:03 ED course: Called to bedside, return of left sided epistaxis. 5.5 cm rapid rhino br1 anterior packing placement with good effect. Will continue to monitor.. 07/26 15:02 T-Sheet-- Draft Copy was scanned into [employer] and attached to record. kf3 Administered Medications: 07/25 14:43 Drug: NS 0.9% 1000 ml [sodium chloride 0.9 % intravenous solution] Route: IV; Rate: 150 mb9 mL/hr; Site: left antecubital; 18:24 Follow up: IV Intake: 300ml mb9 16:28 Drug: Oxazepam 30 mg [oxazepam 15 mg capsule (2 caps)] Route: PO; ld5 Signatures: Dispatcher [employer] EDMS Sumit Valdez, Reg Reg kf3 Thanh Echevarria MD MD br1 Kasia Contreras RN RN sls2 Lalit Alvarenga RN RN mb9 Sheri Stallings jls1 Clarissa Gee RN ld5 The chart was reviewed and I authenticate all verbal orders and agree with the evaluation and treatment provided.Attachments: 14:32 [facility] Payment Agreement jls1 07/26 15:02 T-Sheet-- Draft Copy kf3 Chart Complete MTDD
--- NOTE | 2016-07-27 19:26 | EDDOCDS ---
Nurse's Notes [facility] Name: Onel Juarez Age: 65 yrs Sex: Male : 1950 Arrival Date: 07/25/2016 Time: 12:28 Bed 20 Private MD: Diagnosis: Epistaxis;Alcohol dependence with withdrawal;Thrombocytopenia, unspecified Presentation: 07/25 12:37 Presenting complaint: EMS states: "Nose bleed since 3 am on and off. He has a history mb9 of hypertension. Pt has been drinking all day.". Suicide/Homicide risk assessment- the patient denies having any suicidal and/or homicidal ideations and does not present with any other emotional, behavioral or mental health complaints. Status: Patient is not a enrollment services dean or dependent. Transition of care: patient was not received from another setting of care. 12:37 Acuity: LATONYA Level 3 mb9 12:37 Method Of Arrival: Ambulance mb9 12:55 Adult Sepsis Screening: The patient does not have new or worsening altered mentation. mb9 Patient's respiratory rate is less than 22. Systolic blood pressure is greater than 100. Patient has a qSOFA score of 0- Negative Sepsis Screen. Triage Assessment: 12:56 General: Appears unkempt, Behavior is cooperative, Smells of alcohol. Pain: Denies mb9 pain. Pt Declines HIV testing. The patient is triaged at the bedside. See Assessment in Nurses Notes section of ED record. Neurological: Level of Consciousness is awake, alert, Oriented to person, place, Speech is slurred, Facial symmetry appears normal, Pupils are PERRLA. EENT: Nares with bleeding noted pt reports nose bleed since 3 am and drinking all day. pt cleaned of a large of dried blood. . Respiratory: Airway is patent Respiratory effort is even, unlabored. Historical: - Allergies: No known drug Allergies; - Home Meds: 1. metoprolol tartrate 50 mg Oral tab 1 tab 2 times per day 2. Celebrex 200 mg Oral cap 1 cap 2 times per day - PMHx: Hypertension; - PSHx: right hip replacement.; - Social history: Smoking status: Chewing Tobacco Patient uses alcohol on a daily basis. "about 12 bottles of beer".. No barriers to communication noted, The patient speaks fluent [place] Islander. - Family history: No immediate family members are acutely ill. - : The pt / caregiver states he / she is not on anticoagulants. Home medication list is obtained from. - Exposure Risk Screening:: None identified. Screenin:20 Screening information is obtained from the patient. Fall risk: No risks identified. mb9 Assistance ADL's: requires no assistance with activities of daily living. Abuse/DV Screen: The patient / caregiver reports he/she is: not in a situation that causes fear, pain or injury. Nutritional screening: No deficits noted. Advance Directives: There is no active DNR order. home support is adequate. Assessment: 13:52 General: Appears in no apparent distress, Behavior is appropriate for age, cooperative. mb9 Respiratory: Airway is patent Respiratory effort is even, unlabored. 16:13 Reassessment: Patient states symptoms have improved. Adult Sepsis Screening: The mb9 patient does not have new or worsening altered mentation. Patient's respiratory rate is less than 22. Systolic blood pressure is greater than 100. Patient has a qSOFA score of 0- Negative Sepsis Screen. General: Appears in no apparent distress, Behavior is appropriate for age, cooperative. General: pt able to ambulate 20 ft with his cane. pt appeared unsteady but states, "I feel like I'm walking pretty normal". . EENT: Nares pt appears to have a small amount of bleeding from his left nare.. 17:20 Reassessment: Patient states symptoms have improved. General: Appears in no apparent mb9 distress, Behavior is appropriate for age, cooperative. Respiratory: Airway is patent Respiratory effort is even, unlabored. Vital Signs: 12:46 BP 141 / 67; Pulse 108; Resp 20; Pulse Ox 96% on R/A; Weight 112.04 kg (R); Height 5 dpm ft. 6 in. (167.64 cm) (R); Pain 0/10; 12:54 BP 151 / 71 (auto/); mb9 12:55 Pulse 104 MON; Pulse Ox 96% ; mb9 13:25 Pulse 96 MON; Pulse Ox 87% ; mb9 13:25 BP 123 / 81 (auto/); mb9 13:39 Pulse 102 MON; Pulse Ox 96% ; mb9 13:39 BP 123 / 77 (auto/); mb9 13:41 Temp 97.9(O); nb2 17:20 BP 149 / 66; Pulse 122; Resp 17; Temp 97.8(O); Pulse Ox 95% on R/A; mb9 12:46 Body Mass Index 39.87 (112.04 kg, 167.64 cm) dpm Vitals: 12:56 Log In Time N/A - ambulance arrival. mb9 ED Course: 12:29 Patient visited by Nikky Osorio PCA. ar3 12:29 Patient moved to Waiting ar3 12:29 Patient moved to 20 ar3 12:40 Triage Initiated mb9 13:03 Patient visited by Lalit Alvarenga RN. mb9 13:03 Maintain field IV. Dressing intact. Good blood return noted. Site clean & dry. Gauge & mb9 site: 20 gauge left ac. 13:42 Patient visited by Angelic Orozco. nb2 14:03 Thanh Echevarria MD is Attending Physician. br1 14:10 Patient visited by Thanh Echevarria MD. br1 14:32 [facility] Payment Agreement was scanned into [employer] and attached to record. jls1 14:39 Patient name changed from Onel\\S\\\\S\\Hellinger\\S\\ to Onel\\S\\ \\S\\Hellinger. EDMS 14:43 PTT Sent. mb9 14:43 PT/INR Sent. mb9 14:43 BMP Sent. mb9 14:43 CBC with Diff Sent. mb9 16:12 Patient visited by Lalit Alvarenga RN. mb9 16:58 Patient visited by Thanh Echevarria MD. br1 17:07 Treva Aaron is Hospitalizing Provider. br1 17:20 The patient / caregiver is instructed regarding the plan of care and ED course. mb9 17:20 No procedures done that require assistance. mb9 07/26 15:02 T-Sheet-- Draft Copy was scanned into [employer] and attached to record. kf3 Administered Medications: 07/25 14:43 Drug: NS 0.9% 1000 ml [sodium chloride 0.9 % intravenous solution] Route: IV; Rate: 150 mb9 mL/hr; Site: left antecubital; 18:24 Follow up: IV Intake: 300ml mb9 16:28 Drug: Oxazepam 30 mg [oxazepam 15 mg capsule (2 caps)] Route: PO; ld5 Intake: 17:45 PO: 360.00ml; Total: 360.00ml. mb9 18:24 IV: 300.00ml; Total: 660.00ml. mb9 Output: 17:45 Urine: 300.00ml; Total: 300.00ml. mb9 Order Results: Lab Order: CBC with Diff; SPEC'M 07/25/16 14:35 Test: WHITE BLOOD COUNT; Value: 4.4; Range: 4.0-10.0; Units: K/mm3; Status: F Test: RED BLOOD COUNT; Value: 4.37; Range: 4.30-6.10; Units: M/mm3; Status: F Test: HEMOGLOBIN; Value: 12.9; Range: 14.0-18.0; Abnormal: Below low normal; Units: g/dl; Status: F Test: HEMATOCRIT; Value: 39.4; Range: 42.0-52.0; Abnormal: Below low normal; Units: %; Status: F Test: MEAN CORPUSCULAR VOLUME; Value: 90.1; Range: 80.0-96.0; Units: fl; Status: F Test: MEAN CORPUSCULAR HEMOGLOBIN; Value: 29.6; Range: 27.0-33.0; Units: pg; Status: F Test: MEAN CORPUSCULAR HGB CONC; Value: 32.8; Range: 32.0-36.5; Units: g/dl; Status: F Test: RED CELL DISTRIBUTION WIDTH; Value: 13.6; Range: 11.5-14.5; Units: %; Status: F Test: PLATELET COUNT, AUTOMATED; Value: 59; Range: 150-450; Abnormal: Below low normal; Units: k/mm3; Status: F Test: NEUTROPHILS %; Value: 84.1; Range: 36.0-66.0; Abnormal: Above high normal; Units: %; Status: F Test: LYMPH %; Value: 10.1; Range: 24.0-44.0; Abnormal: Below low normal; Units: %; Status: F Test: MONO %; Value: 4.4; Range: 0.0-5.0; Units: %; Status: F Test: EOS %; Value: 0.2; Range: 0.0-3.0; Units: %; Status: F Test: BASO %; Value: 0.2; Range: 0.0-1.0; Units: %; Status: F Test: LARGE UNSTAINED CELL %; Value: 1.0; Range: 0.0-4.0; Units: %; Status: F Test: NEUTROPHILS #; Value: 3.7; Range: 1.8-7.7; Units: K/mm3; Status: F Test: LYMPH #; Value: 0.4; Range: 1.5-4.5; Abnormal: Below low normal; Units: K/mm3; Status: F Test: MONO #; Value: 0.2; Range: 0.0-0.8; Units: K/mm3; Status: F Test: EOS #; Value: 0.0; Range: 0.0-0.50; Units: K/mm3; Status: F Test: BASO #; Value: 0.0; Range: 0.0-0.2; Units: K/mm3; Status: F Test: LARGE UNSTAINED CELL #; Value: 0.0; Range: 0.0-0.4; Units: K/mm3; Status: F Lab Order: [facility]; SPEC'M 07/25/16 14:35 Test: GLUCOSE, FASTING; Value: 169; Range: 80-110; Abnormal: Above high normal; Units: MG/DL; Status: F Test: BLOOD UREA NITROGEN; Value: 15; Range: 7-18; Units: MG/DL; Status: F Test: CREATININE FOR GFR; Value: 0.64; Range: 0.70-1.30; Abnormal: Below low normal; Units: MG/DL; Status: F Test: GLOMERULAR FILTRATION RATE; Value: > 60.0; Range: >49; Status: F Test: SODIUM LEVEL; Value: 139; Range: 136-145; Units: MEQ/L; Status: F Test: POTASSIUM SERUM; Value: 3.5; Range: 3.5-5.1; Units: MEQ/L; Status: F Test: CHLORIDE LEVEL; Value: 98; Range: 98-107; Units: MEQ/L; Status: F Test: CARBON DIOXIDE LEVEL; Value: 27; Range: 21-32; Units: MEQ/L; Status: F Test: ANION GAP; Value: 14; Range: 8-16; Units: MEQ/L; Status: F Test: CALCIUM LEVEL; Value: 8.4; Range: 8.8-10.2; Abnormal: Below low normal; Units: MG/DL; Status: F Test Note: ; Units are mL/min/1.73 m2 Chronic Kidney Disease Staging per NKF: Stage I & II GFR >=60 Normal to Mildly Decreased Stage III GFR 30-59 Moderately Decreased Stage IV GFR 15-29 Severely Decreased Stage V GFR <15 Very Little GFR Left ESRD GFR <15 on CORRECTIONAL FACILITY NURSE Lab Order: PT/INR; SPEC'M 07/25/16 14:35 Test: PROTHROMBIN TIME; Value: 17.3; Range: 12.3-14.5; Abnormal: Above high normal; Units: SECONDS; Status: F Test: INR; Value: 1.40; Status: F Test Note: ; THERAPUTIC HUMAN INR VALUES INDICATIONS NORMAL RANGES PROPHYLAXIS/TREATMENT OF: VENOUS THROMBOSIS 2.0-3.0 PULMONARY EMBOLISM 2.0-3.0 PREVENTION OF SYSTEMIC EMBOLISM FROM: TISSUE HEART VALVES 2.0-3.0 ACUTE MYOCARDIAL INFARCTION 2.0-3.0 VALVULAR HEART DISEASE 2.0-3.0 ATRIAL FIBRILLATION 2.0-3.0 MECHANICAL VALVES(HIGH RISK) 2.5-3.5 RECURRENT MYOCARDIAL INFARCTION 2.5-3.5 Lab Order: PTT; SPEC'M 07/25/16 14:35 Test: PARTIAL THROMBOPLASTIN TIME; Value: 33.4; Range: 26.6-37.1; Units: SECONDS; Status: F Outcome: 17:07 Decision to Hospitalize by Provider. br1 17:20 Discharge Assessment: Patient awake, alert and oriented x 3. No cognitive and/or mb9 functional deficits noted. Patient verbalized understanding of disposition instructions. patient administered narcotics - yes. Patient was admitted to the hospital or transferred to another facility. The following High Risk Discharge criteria are identified: None. Admitted to Med/Surg. Condition: good Condition: stable Condition: improved. No special radiology studies were completed. Property :Personal belongings accompany Pt. 18:24 Patient left the ED. mb9 Signatures: Dispatcher [employer] EDMS Sumit Valdez, Reg Reg kf3 Thanh Echevarria MD MD br1 Nikky Osorio, TELEGRAPH EDITOR TELEGRAPH EDITOR ar3 Clarissa Gee RN RN ld5 Arjun Perez dpm, MichaelRN RN mb9 Sheri Stallings jls1 Angelic Orozco nb2 Chart Complete MTDD
[2016-07-28] MEDS: OXAZEPAM 10 MG CAP PO SCH ×3 (00:04→17:37)
[2016-07-28] MEDS: METOPROLOL TART 25 MG TABLET PO SCH ×3 (05:46→17:38)
[2016-07-28 06:00] VITALS: BP_SYST 117; BP_SYST 155; BP_SYST 159; BP_DIAS 57; BP_DIAS 64; BP_DIAS 81
[2016-07-28] MEDS: NS 1,000 ML IV SCH (07:26)
[2016-07-28 08:20] LABS: ANION GAP 9 MEQ/L (8-16); BLOOD UREA NITROGEN 8 MG/DL (7-18); CALCIUM LEVEL 8.2 MG/DL (8.8-10.2); CARBON DIOXIDE LEVEL 30 MEQ/L (21-32); CHLORIDE LEVEL 108 MEQ/L (98-107); CREATININE FOR GFR 0.55 MG/DL (0.70-1.30); GLOMERULAR FILTRATION RATE > 60.0 (>49); GLUCOSE, FASTING 99 MG/DL (80-110); MAGNESIUM LEVEL 2.1 MG/DL (1.8-2.4); POTASSIUM SERUM 3.2 MEQ/L (3.5-5.1); SODIUM LEVEL 147 MEQ/L (136-145)
[2016-07-28 09:00] VITALS: BP 153/69
[2016-07-28] MEDS ORDERED: NS 0.45% 1,000 ML IV SCH (09:15)
[2016-07-28] MEDS ORDERED: SODIUM CHLORIDE 0.45% 1000 ML IV ONE (09:15)
--- NOTE | 2016-07-28 09:45 | IPN ---
DATE OF SERVICE: 07/28/2016 The patient seen and examined at the bedside. Chart has been reviewed. He has no new complaints this morning. States that since his hip replacement, he has been unable to pivot with his walker, even at home. He denies any nausea, vomiting, abdominal pain, chest pain, pressure, tightness, palpitations, or lightheadedness. Denies any epistaxis, hematemesis, black tarry stools. Temperature 99.6, pulse 86, respiratory rate 24, blood pressure 155/64, 98% on room air. Generally, the patient is awake, alert, oriented times three. He has an erythematous rash on his face. Lungs are clear to auscultation. No wheezing, rales, or rhonchi. Heart: S1, S2, sinus rhythm. Abdomen is obese, soft, nontender, nondistended. Extremities: No cyanosis, clubbing, or pitting edema. LABORATORY DATA: CBC: Hemoglobin is 9.3, hematocrit of 27. Sodium 147, potassium 3.2, chloride 108, bicarbonate 30, BUN 8, creatinine 0.55, glucose of 99. ASSESSMENT AND PLAN: This is a 65-year-old male who presented to the emergency room (ER) with epistaxis and hematemesis, cauterized by Dr. Ybarra, ears, nose, and throat (ENT). Esophagogastroduodenoscopy (EGD) by Dr. Dove showed no varices. The patient has been given intravenous (IV) fluids with dehydration. Sodium level of 147. Electrolyte abnormalities with 3.2 potassium. CURRENT ISSUES: 1. Acute blood loss anemia secondary to epistaxis, resolved. Hemoglobin is stable and has been stable for the last few days. He has received cautery from Dr. Ybarra. Outpatient followup from now on. 2. Severe alcohol abuse. EGD was unremarkable. The patient is on Clinical [place] Withdrawal Assessment (CIWA) protocol. He did receive 8 mL of fentanyl during upper endoscopy with difficulty to arouse for about 45 minutes in postanesthesia care unit (PACU). IV Ativan as needed. Continue thiamine and folate. 3. Hematemesis secondary to epistaxis. EGD was unremarkable. No recurrence of hemoptysis. 4. Thrombocytopenia and coagulopathy secondary to alcohol liver disease. Refusing quit drinking alcohol. Anxious to go home. No acute indication for platelet transfusion at this time. DISPOSITION: Awaiting physical therapy (PT) clearance prior to discharge home and dehydration to resolve. 6. Hypernatremia and dehydration. Change IV fluids to half-normal saline. Repeat metabolic panel and discharge home once sodium level is normalized and PT has cleared the patient. MTDD
[2016-07-28] MEDS: FOLIC ACID 1 MG TAB PO SCH (09:49)
[2016-07-28] MEDS: MULTIVITAMINS/MINERALS THERAP 1 TAB PO SCH (09:49)
[2016-07-28] MEDS: THIAMINE 100 MG TAB PO SCH (09:49)
[2016-07-28 14:00] VITALS: BP 153/70
[2016-07-28 18:00] VITALS: BP_SYST 135; BP_SYST 148; BP_SYST 166; BP_DIAS 69; BP_DIAS 75; BP_DIAS 81
[2016-07-28 20:38] VITALS: BP 172/80
[2016-07-28 22:00] VITALS: BP 142/78
[2016-07-29] MEDS: OXAZEPAM 10 MG CAP PO SCH ×2 (00:29→08:43)
[2016-07-29] MEDS: METOPROLOL TART 25 MG TABLET PO SCH ×2 (00:30→05:54)
[2016-07-29 06:00] VITALS: BP_SYST 142; BP_SYST 145; BP_SYST 153; BP_DIAS 63; BP_DIAS 69; BP_DIAS 71; BP_DIAS 75
[2016-07-29] MEDS ORDERED: METO25TAB PO (06:54)
[2016-07-29] MEDS ORDERED: LISI-542 PO (06:54)
[2016-07-29 07:18] LABS: MEAN CORPUSCULAR HEMOGLOBIN 31.9 pg (27.0-33.0); MEAN CORPUSCULAR HGB CONC 34.7 g/dl (32.0-36.5); MEAN CORPUSCULAR VOLUME 91.9 fl (80.0-96.0); RED CELL DISTRIBUTION WIDTH 15.4 % (11.5-14.5); WHITE BLOOD COUNT 4.3 K/mm3 (4.0-10.0)
[2016-07-29 07:20] LABS: INR 1.29
[2016-07-29 07:22] LABS: ANION GAP 7 MEQ/L (8-16); BLOOD UREA NITROGEN 5 MG/DL (7-18); CALCIUM LEVEL 8.5 MG/DL (8.8-10.2); CARBON DIOXIDE LEVEL 33 MEQ/L (21-32); CHLORIDE LEVEL 107 MEQ/L (98-107); GLOMERULAR FILTRATION RATE > 60.0 (>49); GLUCOSE, FASTING 103 MG/DL (80-110); SODIUM LEVEL 147 MEQ/L (136-145)
[2016-07-29] MEDS ORDERED: POTASSIUM CHLORIDE 10 MEQ SR TABLET PO ONE (08:00)
[2016-07-29] MEDS: THIAMINE 100 MG TAB PO SCH (08:42)
[2016-07-29] MEDS: MULTIVITAMINS/MINERALS THERAP 1 TAB PO SCH (08:42)
[2016-07-29 08:44] VITALS: BP 137/63
[2016-07-29] MEDS: FOLIC ACID 1 MG TAB PO SCH (08:44)
[2016-07-29 08:56] VITALS: BP 137/63
[2016-07-29] MEDS ORDERED: LISINOPRIL 5 MG TAB PO SCH (09:00)
[2016-07-29] MEDS ORDERED: POTASSIUM CHLORIDE 10 MEQ SR TABLET PO SCH (09:00)
[2016-07-29] MEDS ORDERED: LOPR1TAB6 PO (11:05)
[2016-07-29] MEDS ORDERED: METOPROLOL TART 25 MG TABLET PO SCH (21:00)
--- NOTE | 2016-07-30 08:58 | DSES ---
DATE OF ADMISSION: 07/27/2016 DATE OF DISCHARGE: 07/29/2016 CONSULTANTS DURING THIS ADMISSION: Dr. Parminder Dove, director of state. Dr. Ybarra, ENT surgeon. DISCHARGE DIAGNOSES: 1. Epistaxis. 2. Hematemesis, acute blood loss anemia. 3. Severe alcohol abuse. 4. Thrombocytopenia and coagulopathy secondary to alcoholic liver disease. DISCHARGE MEDICATIONS: - metoprolol 50 mg by mouth twice a day HOSPITAL COURSE: This is a 65-year-old male with history of alcohol abuse, alcoholic liver disease with coagulopathy and hypertension, presented to the emergency room with complaints of epistaxis. Patient drinks 12 beers a day for the past 50 years. Does not see his primary care physician. Patient was seen in emergency room by ENT surgeon, Dr. Ybarra. Patient's bleeding has stopped after cautery. He then complained of coffee-ground emesis and hematemesis. Evaluated by Dr. Dove with an upper endoscopy, which showed normal esophagus and stomach. Fresh blood clot was suctioned from the posterior pharynx and gastric fluid was yellow and clear. No varices or ulcers, irritation or inflammation. Patient returned to the medical-surgical floor with no acute issues. Patient's blood pressure increased due to possible alcohol withdrawal. He was placed on a higher dose of metoprolol, 75 twice a day, and lisinopril 5 twice a day as well as oxazepam 10 mg every 8 hours with Ativan intravenously for alcohol withdrawal. Patient passed a home safety evaluation and his chronic need for a walker. He lives alone. Sister is at the bedside. Patient's hemoglobin and hematocrit remained stable at 9, hematocrit of 26. He has chronic pancytopenia due to alcoholic liver cirrhosis. International normalized ratio (INR) is 1.29. LABORATORY DATA ON DISCHARGE: INR 1.29. White count 4, hemoglobin 9.2, hematocrit 26.6, platelet count 74. Sodium 147, potassium 3, chloride 107, bicarbonate 33, BUN 5, creatinine 0.6, glucose of 103. IMAGING STUDY: Chest x-ray 07/25/2016: No acute thoracic process. TIME SPENT ON DISCHARGE: 30 minutes. [facility]
--- NOTE | 2016-07-30 10:52 | CR ---
DATE OF SERVICE: 07/27/2016 Patient is a 65-year-old gentleman who presents to the emergency department with epistaxis. He was packed in the emergency department and then transferred to the magdaleno. He continues to bleed from both sides. Patient is an alcoholic and going through alcoholic withdrawal. He does take aspirin on occasion. Examination today shows that he has a packing in the left side of his nose and there is bleeding. I removed the packing on the magdaleno in the hospital. I infiltrated with lidocaine and epinephrine. There were prominent vessels area on both sides which I cauterized with cautery. After that, there was no bleeding. The packing was not placed again. Patient tolerated the procedure well.
== END 2016-07-29 11:39 | disposition home health service (06) | DRG 115 ==
LOC: M ED 12:28 → M ED INP 17:02 → M MS5PR 18:20 → M ICU 07-26 01:21 → M PCU 07-26 08:36 → M MSPAV 07-27 10:49 → OBSVTOIN 07-27 16:08
PROVIDERS: ADMIT Internal Medicine; ATTEND General Practice
PROC: 0DJ08ZZ Inspection of Upper Intestinal Tract, Via Natural or Artificial Opening Endoscopic (ICD-10-PCS; principal; 2016-07-26 10:24)
PROC: 095KXZZ Destruction of Nasal Mucosa and Soft Tissue, External Approach (ICD-10-PCS; 2016-07-27)
PROC: 2Y41X5Z Packing of Nasal Region using Packing Material (ICD-10-PCS; 2016-07-27)
DX: R04.0 Epistaxis (principal); E87.0 Hyperosmolality and hypernatremia; D61.818 Other pancytopenia; D69.6 Thrombocytopenia, unspecified; K70.30 Alcoholic cirrhosis of liver without ascites; D62 Acute posthemorrhagic anemia; E86.0 Dehydration; R04.2 Hemoptysis; I10 Essential (primary) hypertension; F17.220 Nicotine dependence, chewing tobacco, uncomplicated; F10.239 Alcohol dependence with withdrawal, unspecified; R26.81 Unsteadiness on feet; Z96.641 Presence of right artificial hip joint; Z79.899 Other long term (current) drug therapy

== ENCOUNTER → 2016-08-13 | Outpatient (REF) | payer OTHER ==
[~2016-08-13] MED LIST changes: +LISI-542 PO; +LOPR1TAB6 PO; +METO25TAB PO
[2016-08-13 16:32] LABS: ALBUMIN/GLOBULIN RATIO 0.58 (1.00-1.93); ALKALINE PHOSPHATASE 71 U/L (45-117); ALT/SGPT 39 U/L (12-78); ANION GAP 10 MEQ/L (8-16); AST/SGOT 56 U/L (15-37); BILIRUBIN,TOTAL 0.7 MG/DL (0.2-1.0); BLOOD UREA NITROGEN 4 MG/DL (7-18); CALCIUM LEVEL 8.1 MG/DL (8.8-10.2); CARBON DIOXIDE LEVEL 28 MEQ/L (21-32); CHLORIDE LEVEL 103 MEQ/L (98-107); CREATININE FOR GFR 0.57 MG/DL (0.70-1.30); GLOMERULAR FILTRATION RATE > 60.0 (>49); GLUCOSE, FASTING 128 MG/DL (80-110); MAGNESIUM LEVEL 2.2 MG/DL (1.8-2.4); POTASSIUM SERUM 3.7 MEQ/L (3.5-5.1); SODIUM LEVEL 141 MEQ/L (136-145); TOTAL PROTEIN 8.2 GM/DL (6.4-8.2)
[2016-08-13 19:08] LABS: INR 1.24
[2016-08-13 21:16] LABS: ADD MORPHOLOGY? YES; BASO % 0.4 % (0.0-1.0); EOS # 0.1 K/mm3 (0.0-0.50); EOS % 1.9 % (0.0-3.0); LARGE UNSTAINED CELL # 0.2 K/mm3 (0.0-0.4); LARGE UNSTAINED CELL % 2.6 % (0.0-4.0); LYMPH # 1.5 K/mm3 (1.5-4.5); LYMPH % 18.4 % (24.0-44.0); MEAN CORPUSCULAR HEMOGLOBIN 28.2 pg (27.0-33.0); MEAN CORPUSCULAR HGB CONC 30.4 g/dl (32.0-36.5); MEAN CORPUSCULAR VOLUME 92.7 fl (80.0-96.0); MONO # 0.6 K/mm3 (0.0-0.8); MONO % 8.4 % (0.0-5.0); NEUTROPHILS # 4.7 K/mm3 (1.8-7.7); NEUTROPHILS % 68.3 % (36.0-66.0); PLATELET COUNT, AUTOMATED 178 k/mm3 (150-450); RED CELL DISTRIBUTION WIDTH 15.3 % (11.5-14.5); WHITE BLOOD COUNT 6.9 K/mm3 (4.0-10.0)
[2016-08-13 21:40] LABS: ANISOCYTOSIS 1+
[2016-08-13 21:41] LABS: HYPOCHROMASIA 1+; POLYCHROMASIA 1+
== END ==
LOC: M SFHCLERA 11:26
PROVIDERS: ATTEND Family Medicine
DX: D62 Acute posthemorrhagic anemia (principal)

== ENCOUNTER → 2017-03-19 | Outpatient (CLI) | payer OTHER ==
[~2017-03-19] MED LIST changes: -CELE-19 PO; +CELE1CAP4 PO; +METO25TA4 PO; -METO25TAB PO; +METO50TA7 PO
[2017-03-19 10:42] LABS: MEAN CORPUSCULAR HEMOGLOBIN 21.2 pg (27.0-33.0); MEAN CORPUSCULAR HGB CONC 29.3 g/dl (32.0-36.5); MEAN CORPUSCULAR VOLUME 72.4 fl (80.0-96.0); RED CELL DISTRIBUTION WIDTH 17.6 % (11.5-14.5); WHITE BLOOD COUNT 4.8 K/mm3 (4.0-10.0)
--- NOTE | 2017-03-19 10:51 | REP ---
Clinical: Hypertension. Technique: PA and lateral. Comparison: 07/25/2016. Findings: Heart size is upper limits of normal. Mediastinum is otherwise unremarkable. Lung last demonstrate chronic changes without acute consolidation, effusion, or pneumothorax. Skeletal structures demonstrate age-related degenerative change. Impression: Cannot exclude early cardiomegaly. No acute cardiopulmonary process otherwise appreciated. Signed by Elan Julian MD 03/19/2017 10:43 A
[2017-03-19 11:06] LABS: ALBUMIN/GLOBULIN RATIO 0.61 (1.00-1.93); ALKALINE PHOSPHATASE 56 U/L (45-117); ALT/SGPT 27 U/L (12-78); ANION GAP 10 MEQ/L (8-16); AST/SGOT 35 U/L (15-37); BILIRUBIN,TOTAL 0.8 MG/DL (0.2-1.0); BLOOD UREA NITROGEN 4 MG/DL (7-18); CALCIUM LEVEL 8.1 MG/DL (8.8-10.2); CARBON DIOXIDE LEVEL 27 MEQ/L (21-32); CHLORIDE LEVEL 104 MEQ/L (98-107); CHOLESTEROL LEVEL 151 MG/DL (<200); CREATININE FOR GFR 0.48 MG/DL (0.70-1.30); GLOMERULAR FILTRATION RATE > 60.0 (>49); GLUCOSE, FASTING 121 MG/DL (80-110); POTASSIUM SERUM 3.5 MEQ/L (3.5-5.1); SODIUM LEVEL 141 MEQ/L (136-145); TOTAL PROTEIN 7.9 GM/DL (6.4-8.2); TRIGLYCERIDES LEVEL 83 MG/DL (<150)
--- NOTE | 2017-03-19 11:09 | REP ---
Clinical: Hip and back pain. Technique: AP, lateral, bilateral oblique and coned-down views of the lumbosacral spine. Comparison: None Findings: Advanced multilevel degenerative disc osteophyte complexes noted throughout the lumbosacral spine including chronic compression deformity at L1. Findings include bridging osteophytes, endplate sclerosis, disc space narrowing and hypertrophic facet changes. No subluxation. Impression: Advanced multilevel degenerative changes with chronic compression fracture at L1. Signed by Elan Julian MD 03/19/2017 11:00 A
--- NOTE | 2017-03-19 13:03 | ECGEPIP ---
Stationary ECG Study [facility] Test Date: 2017-03-19 Pat Name: PARDEEP SNYDER Department: Room: - Gender: M Esthetician/Owner: MARQUEZ : [id number] Requested By: Bree Gordon Order Number: [id number] Reading MD: Parminder Carson Measurements Intervals [place] Rate: 77 P: 52 NV: 183 QRS: 24 QRSD: 88 T: 47 QT: 414 QTc: 469 Interpretive Statements SINUS RHYTHM WITH OCCASIONAL SUPRAVENTRICULAR PREMATURE COMPLEXES Prolonged QTc Electronically Signed On 03-19-2017 13:03:06 EDT by Parminder Carson
== END ==
LOC: M LAB 09:42
PROVIDERS: ATTEND Family Medicine
DX: I10 Essential (primary) hypertension (principal); E03.9 Hypothyroidism, unspecified

== ENCOUNTER → 2017-06-07 | Outpatient (CLI) | payer OTHER ==
--- NOTE | 2017-06-07 13:17 | REP ---
MRI LUMBAR SPINE WITHOUT CONTRAST: HISTORY: Back and right leg pain. Decreased signal intensity on T2-weighted images is present in the visualized thoracic and lumbar intervertebral discs. The discs are decreased in height. These findings are consistent with disc degeneration. A diffuse disc bulge and small central disc protrusion are present at the L1-2 level. There is minimal compression of the thecal sac. The L1 nerves exit the neural foramina without compression. A diffuse disc bulge is present at the L2-3 level. There is minimal compression of the thecal sac. There is hypertrophy of the posterior articulating facets. The L2 nerves exit the neural foramina without compression. A diffuse disc bulge is present at the L3-4 level. There is minimal compression of the thecal sac. There is hypertrophy of the posterior articulating facets. The L3 nerves exit the neural foramina without compression. A diffuse disc bulge is present at the L4-5 level. This abuts the thecal sac. There is hypertrophy of the posterior articulating facets. The L4 nerves exit the neural foramina without compression. A diffuse disc bulge is present at the L5-S1 level. There is no thecal sac compression. There is hypertrophy of the posterior articulating facets. There is compression of the left L5 nerve in the neural foramen. The right L5 nerve exits the neural foramen without compression. The conus medullaris is normal in appearance terminating at the level of the L1-2 intervertebral disc. There is no compression fracture of the L1 vertebral body with mild height loss and minimal retropulsion. Increased signal intensity on T2-weighted images is present in the end plates of the L2-5 vertebral bodies. This represents degenerative change. IMPRESSION: 1. Diffuse disc bulge and small central disc protrusion at the L1-2 level with minimal thecal sac compression. 2. Diffuse disc bulges at the L2-3 and L3-4 levels with minimal thecal sac compression. 3. Diffuse disc bulge at the L4-5 level. This abuts the thecal sac. 4. Diffuse disc bulge at the L5-S1 level without thecal sac compression. There is compression of the left L5 nerve in the neural foramen. Signed by Justus Bee MD 06/07/2017 01:39 P
== END ==
LOC: M PLARAD 10:58
PROVIDERS: ATTEND Orthopaedic Surgery
DX: M51.26 Other intervertebral disc displacement, lumbar region (principal); M51.27 Other intervertebral disc displacement, lumbosacral region